=== PATIENT | female | born 1985 | race Caucasian/White ===

== ENCOUNTER 2017-01-05 15:35 | Emergency (ER) | payer OTHER ==
[~2017-01-05] VITALS: Ht 167.6 cm; Wt 98.0 kg
[2017-01-05 16:03] VITALS: BP 135/77
--- NOTE | 2017-01-05 16:03 | PHYS DOC ---
Adult General Chief Complaint Chief Complaint: FOOT INJURY PAIN HPI HPI Patient is a 31 year old female presents to the emergency department with pain to her right great toe. Patient states she had her foot stepped on by a horse. She is able to ambulate with good steady gait. She has taken Ibuprofen for pain and discomfort.. Review of Systems Review of Systems Constitutional: Denies fever or chills [] Eyes: Denies change in visual acuity, redness, or eye pain [] HENT: Denies nasal congestion or sore throat [] Respiratory: Denies cough or shortness of breath [] Cardiovascular: No additional information not addressed in HPI [] GI: Denies abdominal pain, nausea, vomiting, bloody stools or diarrhea [] : Denies dysuria or hematuria [] Musculoskeletal: Denies back pain. Right great toe pain Integument: Denies rash or skin lesions [] Neurologic: Denies headache, focal weakness or sensory changes [] Endocrine: Denies polyuria or polydipsia [] Allergies Allergies Allergies Coded Allergies Type Severity Reaction Last Updated Verified No Known Drug Allergies 01/05/17 No Physical Exam Physical Exam Constitutional: Well developed, well nourished, no acute distress, non-toxic appearance. [] HENT: Normocephalic, atraumatic, bilateral external ears normal, oropharynx moist, no oral exudates, nose normal. [] Eyes: PERRLA, EOMI, conjunctiva normal, no discharge. [] Neck: Normal range of motion, no tenderness, supple, no stridor. [] Cardiovascular:Heart rate regular rhythm, no murmur [] Lungs & Thorax: Bilateral breath sounds clear to auscultation [] Skin: Warm, dry, no erythema, no rash. [] Back: No tenderness Extremities: right great toe tenderness, no cyanosis, no clubbing, ROM intact, no edema. Patient with no redness no swelling no ecchymosis noted pedal and posterior tibial pulses +2 seconds noted. Neurologic: Alert and oriented X 3, normal motor function, normal sensory function, no focal deficits noted. [] Psychologic: Affect normal, judgement normal, mood normal. [] Current Patient Data Vital Signs Vital Signs Date Time Temp Pulse Resp B/P (MAP) Pulse Ox O2 Delivery O2 Flow Rate FiO2 01/05/17 16:03 97.8 76 18 97 Room Air 97.8 Lab Values Laboratory Tests Test 01/05/17 15:11 POC Urine HCG, Qualitative Hcg negative (Negative) EKG EKG [] Radiology/Procedures Radiology/Procedures [] Course & Med Decision Making Course & Med Decision Making Pertinent Labs and Imaging studies reviewed. (See chart for details) X-rays negative for bony abnormalities per Dr Sharma and Dr Champagne. Ice packs on 20 minutes and off 20 minutes several times a day. Elevation as much as possible. Tylenol or Ibuprofen for pain and discomfort. Followup with your primary care provider in 5-7 days. Signs and symptoms to return to emergency department has been provided. Patient will be discharged home in stable condition. All questions and concerns have been answered at patients bedside. [] Dragon Disclaimer Dragon Disclaimer This electronic medical record was generated, in whole or in part, using a voice recognition dictation system. Departure Departure Impression: Primary Impression: Toe contusion Disposition: HOME, SELF-CARE Condition: STABLE Patient Instructions: Contusion, [id number] Additional Instructions: X-rays negative for bony abnormality. Activity as tolerated Tylenol or Ibuprofen for pain and discomfort Ice packs on 20 minutes and off 20 minutes several times a day Elevation as much as possible Followup with your primary care provider in 5-7 days Return to emergency department as needed for signs and symptoms that become worse. Problem Qualifiers Primary Impression: Toe contusion Encounter type: initial encounter Toe: great toe Damage to nail status: without damage Laterality: right Qualified Codes: S90.111A - Contusion of right great toe without damage to nail, initial encounter DONNIE CABRALES APRN Jan 05, 2017 16:03
--- NOTE | 2017-01-05 17:00 | RAD ---
Right great toe, 3 views, 01/05/2017: History: Great toe injury No fracture or dislocation is identified. The soft tissues are unremarkable. IMPRESSION: No acute bony abnormality is detected.
== END 2017-01-05 17:00 | disposition home or self-care (01) ==
LOC: ER 15:35
DX: S90.111A Contusion of right great toe without damage to nail, initial encounter (principal); W55.19XA Other contact with horse, initial encounter; Y93.89 Activity, other specified; Y99.8 Other external cause status; Y92.89 Other specified places as the place of occurrence of the external cause
CPT/HCPCS: 73660; 81025; 99284

== ENCOUNTER 2017-06-19 15:32 | Emergency (ER) | payer OTHER | END 2017-06-19 15:56 | disposition home or self-care (01) | LOC: ER 15:32 | DX: H61.22 Impacted cerumen, left ear (principal); J06.9 Acute upper respiratory infection, unspecified | CPT/HCPCS: 99283 ==

== ENCOUNTER 2018-05-17 21:27 | Emergency (ER) | payer OTHER ==
[~2018-05-17] VITALS: Ht 167.6 cm; Wt 84.4 kg
[~2018-05-17 21:27] MED LIST: AMOX875T PO; BENZ100C PO; TRAM50TA PO
[2018-05-17 21:55] VITALS: BP 151/105
[2018-05-17] MEDS ORDERED: DEXAMETHASONE 4 MG TABLET PO ONE (23:30)
--- NOTE | 2018-05-17 23:33 | PHYS DOC ---
Past Medical History Past Medical History: No Pertinent History Additional Past Medical Histor: DENTAL, BACK PAIN Past Surgical History: Appendectomy, Cholecystectomy Additional Information: nonsmoker Alcohol Use: None Drug Use: None Adult General Chief Complaint Chief Complaint: SORE THROAT HPI HPI She is 33-year-old female who presents with 3 day history of sore throat. Patient describes pain as sharp and it hurts worse when she swallows or talks. She reports that her daughter at home has been sick with same symptoms. Patient has tried ibuprofen to relieve the pain to no relief. She reports chills and subjective fever, denies nausea, vomiting, and cough. Review of Systems Review of Systems Constitutional: Reports subjective fever and chills [] Eyes: Denies change in visual acuity, redness, or eye pain [] HENT: Denies nasal congestion, reports sore throat [] Respiratory: Denies cough or shortness of breath [] Cardiovascular: Denies chest pain or palpitations [] GI: Denies abdominal pain, nausea, vomiting, or diarrhea [] Integument: Denies rash or skin lesions [] Neurologic: Denies headache, focal weakness or sensory changes [] Complete systems were reviewed and found to be within normal limits, except as documented in this note. Current Medications Current Medications Current Medications Medications (Trade) Dose Ordered Sig/Quang Start Time Stop Time Status Last Admin Dose Admin Dexamethasone (Decadron) 10 mg 1X ONCE 05/17/18 23:30 05/17/18 23:31 DC 05/17/18 23:18 10 MG Lidocaine HCl (Viscous Lidocaine) 15 ml 1X ONCE 05/17/18 23:45 05/17/18 23:45 DC 05/17/18 23:40 15 ML Allergies Allergies Allergies Coded Allergies Type Severity Reaction Last Updated Verified No Known Drug Allergies 01/05/17 No Physical Exam Physical Exam Constitutional: Well developed, well nourished, no acute distress, non-toxic appearance. [] HENT: Normocephalic, atraumatic, bilateral external ears normal, oropharynx erythematous, tonsillar exudates present, nose normal. [] Eyes: Conjunctiva normal, no discharge. [] Neck: Normal range of motion, no tenderness, supple. [] Cardiovascular: Heart rate regular rhythm, no murmur [] Lungs & Thorax: Bilateral breath sounds clear to auscultation [] Abdomen: Soft, no tenderness. [] Skin: Warm, dry, no erythema, no rash. [] Extremities: No tenderness, no edema. [] Neurologic: Alert and oriented X 3, no focal deficits noted. [] Psychologic: Affect normal, judgement normal, mood normal. [] Current Patient Data Vital Signs Vital Signs Date Time Temp Pulse Resp B/P (MAP) Pulse Ox O2 Delivery O2 Flow Rate FiO2 05/17/18 21:55 98.8 66 14 151/105 (120) 98 Room Air 98.8 EKG EKG [] Radiology/Procedures Radiology/Procedures [] Course & Med Decision Making Course & Med Decision Making Pertinent Labs and Imaging studies reviewed. (See chart for details) Patient is a 33-year-old female presents with a three-day history of sore throat. Patient is on prophylactic penicillin for a dental procedure that will happen on Friday. Rapid strep was negative. Viscous lidocaine and dexamethasone was administered for inflammation and discomfort. Patient stable for discharge with outpatient follow-up with PCP. Discussed findings and plan with patient and family, who acknowledge understanding and agreement. Dragon Disclaimer Dragon Disclaimer This electronic medical record was generated, in whole or in part, using a voice recognition dictation system. Departure Departure Impression: Primary Impression: Pharyngitis Disposition: HOME, SELF-CARE Condition: STABLE Referrals: UNKNOWN PCP NAME (PCP) Patient Instructions: Viral and Bacterial Pharyngitis, [id number] Problem Qualifiers Primary Impression: Pharyngitis Pharyngitis/tonsillitis etiology: unspecified etiology Qualified Codes: J02.9 - Acute pharyngitis, unspecified CODY AYON DO May 17, 2018 23:32
[2018-05-17] MEDS ORDERED: LIDOCAINE 2% VISCOUS 15 ML SOLUTION. SWSW ONE (23:45)
== END 2018-05-17 23:40 | disposition home or self-care (01) ==
LOC: ER 21:27
DX: J02.9 Acute pharyngitis, unspecified (principal)
CPT/HCPCS: 87880; 99283; J8540; 87070